=== PATIENT | female | born 1990 | race African-American/Black ===

== ENCOUNTER 2021-08-03 19:08 | Emergency (ER) | payer MEDICAID ==
[~2021-08-03] VITALS: Ht 162.6 cm; Wt 64.0 kg
[2021-08-03] MEDS ORDERED: IBUP-2029 MT (22:07)
[2021-08-03 22:17] VITALS: BP 120/71
== END 2021-08-03 22:17 | disposition home or self-care (01) ==
LOC: ER 19:08
DX: M79.651 Pain in right thigh (principal); Z90.49 Acquired absence of other specified parts of digestive tract
CPT/HCPCS: 36415; 73552; 81025; 85379; 99284